=== PATIENT | female | born 1980 | race Caucasian/White ===

== ENCOUNTER → 2016-11-25 | Outpatient (CLI) | payer OTHER ==
[~2016-11-25] MED LIST: AMPH20TA2 PO; CYCL10TA6 PO; EFF50 PO; IBUP-1050 PO; MULT-506 PO; TRAM-10 PO
[2016-11-25 15:37] LABS: BASO % 0.2 %; BASO ABS # 0.01 K/uL (0-0.2); COMPLETE YES; HEMATOCRIT 37.1 % (37-47); IG% 0.2 %; LYMPH % 32.5 %; LYMPH ABS # 1.54 K/uL (1.2-3.4); MEAN CELL VOLUME 89.6 fL (80-100); MEAN CORPUSCULAR HEMOGLOBIN 30.2 pg (25-34); MEAN CORPUSCULAR HGB CONC 33.7 g/dl (32-36); MEAN PLATELET VOLUME 9.5 fL (7.4-10.4); MONO % 9.1 %; PLATELET COUNT 263 K/uL (130-400); RED BLOOD COUNT 4.14 M/uL (4.2-5.4); WHITE BLOOD COUNT 4.74 K/uL (4.8-10.8)
[2016-11-25 15:45] LABS: URINE APPEARANCE CLEAR (CLEAR); URINE BILIRUBIN NEG (NEG); URINE COLOR YELLOW; URINE NITRITE NEG (NEG); UROBILINOGEN NEG (NEG)
[2016-11-25 15:50] LABS: MANUAL MICROSCOPIC REQUIRED? NO; REVIEW REQ? NO
[2016-11-25 16:06] LABS: BENZODIAZEPINE, URINE NEG (NEG); COCAINE,URINE NEG (NEG); PHENCYCLIDINE, URINE NEG (NEG)
[2016-11-25 16:20] LABS: ALT/SGPT 31 U/L (12-78); AST/SGOT 55 U/L (15-37); BLOOD UREA NITROGEN 6 mg/dl (7-18); BUN/CREATININE RATIO 7.6 (10-20); CALCIUM 9.3 mg/dl (8.5-10.1); CARBON DIOXIDE 27 mmol/L (21-32); CHLORIDE 103 mmol/L (98-107); CREATININE 0.79 mg/dl (0.60-1.20); GLUCOSE 84 mg/dl (70-99); POTASSIUM 3.3 mmol/L (3.5-5.1); SODIUM 138 mmol/L (136-145)
[2016-11-25 16:33] LABS: ALB/GLOB RATIO 1.2 (0.9-2); ALKALINE PHOSPHATASE 96 U/L (45-117); CHOLESTEROL 210 mg/dl (0-200); CHOLESTEROL/HDL RATIO 3.5; HDL CHOLESTEROL 60 mg/dl; LDL CHOLESTEROL CALCULATED 137 mg/dl; TRIGLYCERIDES 66 mg/dl (0-150); VERY LOW DENSITY LIPOPROT CALC 13 mg/dl
== END | disposition home or self-care (01) ==
LOC: C.CPL 14:06
PROVIDERS: ATTEND Psychiatry & Neurology Psychiatry
DX: F90.9 Attention-deficit hyperactivity disorder, unspecified type (principal); Z13.220 Encounter for screening for lipoid disorders; F41.9 Anxiety disorder, unspecified

== ENCOUNTER 2017-04-13 14:19 | Emergency (ER) | payer OTHER ==
[~2017-04-13] VITALS: Ht 170.2 cm; Wt 65.3 kg
[~2017-04-13 14:19] MED LIST changes: -CYCL10TA6 PO; -TRAM-10 PO
[2017-04-13 14:20] VITALS: TEMP 36.8; Ht 170.2 cm; Wt 65.3 kg
--- NOTE | 2017-04-13 15:13 | DIAGNOSTIC IMAGING REPORT ---
LEFT SHOULDER MIN 2 VIEWS ROUTINE CLINICAL HISTORY: Left shoulder pain. COMPARISON: None FINDINGS: Alignment of the left shoulder is anatomic. There is no fracture or suspicious osseous lesion. Joint spaces are preserved. IMPRESSION: No significant abnormality of the left shoulder. Electronically signed by: Goyo Gomez M.D. 04/13/2017 3:11 PM Dictated Date/Time: 04/13/2017 3:10 PM
[2017-04-13] MEDS ORDERED: CYCL10TA6 PO (15:47)
[2017-04-13] MEDS ORDERED: TRAM-10 PO (15:47)
[2017-04-13 16:07] VITALS: BP 122/78; PULSE 88; O2SAT 99
--- NOTE | 2017-04-14 10:57 | EMERGENCY ROOM VISIT NOTE ---
ED Visit Note First contact with patient: 14:25 Chief Complaint: Left shoulder pain. History of Present Illness: Ms. Chery is a 36-year-old white female who ambulates into the ED complaining of global left shoulder pain. Patient reports approximately one week ago she was moving heavy boxes around her house to prepare for house renovations. She reports at the end of the day of moving she had some mild achiness with in her left shoulder but that has gradually increased in intensity. Currently she describes her pain as a deep achy sensation and intermittent sharp sensation. She places the majority of her discomfort in the mid trapezius area approximately 3-4 cm lateral of the C6-C7 area, in the mid rhomboid area between scapula and thoracic back and also over the bicipital groove area and the lateral aspect of the deltoid in the area of the bursa. Her pain is nonradiating. She rates her discomfort 6/10. She reports intermittently she has been using ibuprofen without relief of her discomfort. Her pain worsens with palpation in all movements of the shoulder but primarily abduction and extension of the shoulder. She has not identified any other alleviating factors related to the pain. Associated with her pain she reports she has mild paresthesias throughout the entire extremity into the hand. She denies cervical spine pain, recent direct trauma, previous significant injuries or surgeries, fevers, chills, sweats, skin eruptions, upper respiratory tract symptoms, shortness of breath, decreased appetite, nausea, extremity weakness. Review of Systems: As noted above in history of present illness. 8 body systems were reviewed and found to be negative as noted above. Past Medical History: Unspecified skin disorder, attention deficit disorder. Current Medications: Adderall, multivitamins and ibuprofen Allergies to Medications: Patient denies. Social History: Patient is currently employed; she feels safe in her home environment; she denies tobacco and alcohol use. Physical Examination: Vital Signs: Date Time Temp Pulse Resp B/P (MAP) Pulse Ox O2 Delivery O2 Flow Rate FiO2 04/13/17 16:07 88 18 122/78 99 04/13/17 14:20 36.8 100 18 119/75 100 Room Air GENERAL: 36-year-old female in mild to moderate distress due to pain, nontoxic- appearing, afebrile and hemodynamically stable. NEUROLOGICAL: Awake, alert and oriented to person, place and time. Answering questions appropriately and following commands. Normal gait. Good hand eye coordination. No focal motor or sensory deficits. SKIN: Warm, dry and pink. No soft tissue eruptions or trauma noted. HEENT: Atraumatic and normocephalic. BACK: No tenderness over the bony cervical and thoracic spine. Full range of motion of the cervical spine. Moderate tenderness through the mid trapezius area lateral to the spine and over the rhomboid muscle group just lateral to the spine. There is palpable spasm in both of these muscles. No CVA tenderness. THORAX: Lungs sounds are clear to auscultation and equal bilaterally with symmetrical chest wall. LEFT UPPER EXTREMITY: No gross bony deformity. No tenderness over the clavicle , humeral head or scapula. I do not appreciate any joint erythema, swelling or ecchymosis. Moderate tenderness as previously noted it the surrounding musculature. There is additional tenderness over the bicipital groove area as well as the subdeltoid bursa. Full range of motion in all movements of the shoulder. 4/5 muscle strength in flexion, extension, abduction, abduction, internal neck sternal rotation and horizontal flexion and extension of the shoulder against resistance. 2+ bicipital, tricipital and brachial radialis deep tendon reflexes. Throughout the extremities skin was warm and pink and capillary refill is brisk. She is able to distinguish light sensations through all dermatomes. ED Course: Patient is assessed as noted above. Left Shoulder X-Rays: Were read by myself and the radiologist showing no acute fractures or dislocations. No joint effusions. Patient's medication list was reviewed. Patient was offered pain medications and refused. Patient was educated about today's findings and instructed on her treatment plan ; she verbalizes understanding and agreement with this plan. Clinical Impression: Left shoulder pain. Trapezius and rhomboid muscle spasm. Possible bursitis. Decision-Making: Initially my differential diagnosis I considered fracture, bursitis, tendinitis, muscle strain, ligamentous sprain, cervical radiculopathy and other causes. Disposition: Patient discharged home in stable condition; prior to departure she was reassessed and subjectively reported she was feeling better. Plan: Comfort measures were discussed with the patient including alternating ibuprofen , acetaminophen and tramadol as needed for her level of pain, muscle relaxants of Flexeril, ice, proper lifting and moving, rest. Patient was encouraged to follow-up with her PCP for recheck in 3-4 days. Patient was encouraged return the ED for worsening/uncontrolled pain, arm/hand weakness, worsening numbness/tingling of the arm, fevers or any new/concerning symptoms.
== END 2017-04-13 16:09 | disposition home or self-care (01) ==
LOC: C.EDB 14:21 → C.EDD 16:09
DX: M62.830 Muscle spasm of back (principal); M25.512 Pain in left shoulder; F90.9 Attention-deficit hyperactivity disorder, unspecified type

== ENCOUNTER → 2017-06-29 | Outpatient (CLI) | payer OTHER ==
[~2017-06-29] MED LIST changes: +TRAM-10 PO
[2017-06-29 12:57] LABS: LYME DISEASE AB IGG NEG (NEG); LYME DISEASE AB IGM NEG (NEG)
[2017-06-29 14:00] LABS: ALT/SGPT 24 U/L (12-78); AST/SGOT 20 U/L (15-37); BLOOD UREA NITROGEN 5 mg/dl (7-18); BUN/CREATININE RATIO 7.9 (10-20); C-REACTIVE PROTEIN < 0.29 mg/dl (0-0.29); CALCIUM 9.2 mg/dl (8.5-10.1); CARBON DIOXIDE 30 mmol/L (21-32); CHLORIDE 105 mmol/L (98-107); CHOLESTEROL 156 mg/dl (0-200); CREATININE 0.63 mg/dl (0.60-1.20); GLUCOSE 79 mg/dl (70-99); POTASSIUM 3.7 mmol/L (3.5-5.1); SODIUM 141 mmol/L (136-145)
[2017-06-29 14:04] LABS: ALKALINE PHOSPHATASE 64 U/L (45-117); CHOLESTEROL/HDL RATIO 3.4; HDL CHOLESTEROL 46 mg/dl; LDL CHOLESTEROL CALCULATED 88 mg/dl; RHEUMATOID FACTOR < 10.0 U/mL (0-15); TRIGLYCERIDES 112 mg/dl (0-150); VERY LOW DENSITY LIPOPROT CALC 22 mg/dl
[2017-07-02 05:46] LABS: RAPID PLASMA REAGIN NONREACTIVE (NONREACT)
== END | disposition home or self-care (01) ==
LOC: C.LABBFT 07:52
PROVIDERS: ATTEND Nurse Practitioner Adult Health
DX: R74.0 Nonspecific elevation of levels of transaminase and lactic acid dehydrogenase [LDH] (principal); E87.6 Hypokalemia; Z13.220 Encounter for screening for lipoid disorders; M25.50 Pain in unspecified joint; L01.00 Impetigo, unspecified

== ENCOUNTER 2017-08-16 11:07 | Emergency (ER) | payer OTHER ==
[~2017-08-16] VITALS: Ht 170.2 cm; Wt 64.4 kg
[2017-08-16 11:12] VITALS: TEMP 36.7; Ht 170.2 cm; Wt 64.4 kg
--- NOTE | 2017-08-16 11:52 | DIAGNOSTIC IMAGING REPORT ---
LEFT SHOULDER 4 VIEWS CLINICAL HISTORY: Left shoulder pain. FINDINGS: 4 views of left shoulder are compared to study dated 04/13/2017. The skeletal structures are well mineralized. No fracture or dislocation is seen. The glenohumeral and acromioclavicular joints are preserved. The overlying soft tissues are within normal limits. The imaged left lung parenchyma appears clear. IMPRESSION: Unremarkable radiographic assessment of the left shoulder. Electronically signed by: Ari Llanos M.D. 08/16/2017 11:51 AM Dictated Date/Time: 08/16/2017 11:50 AM
[2017-08-16] MEDS ORDERED: VENL75TA4 PO (12:03)
[2017-08-16] MEDS ORDERED: AMPH30TA2 PO (12:03)
[2017-08-16] MEDS ORDERED: MULT-1018 PO (12:03)
[2017-08-16] MEDS ORDERED: PRED50TA PO ×2 (13:12→13:48)
[2017-08-16] MEDS ORDERED: CYCL10TA6 PO ×2 (13:12→13:48)
[2017-08-16] MEDS ORDERED: TRAMADOL HCL 50 MG HOME PACK PO ONE (13:15)
[2017-08-16 13:17] VITALS: BP 116/80; PULSE 90; O2SAT 100
--- NOTE | 2017-08-17 07:22 | EMERGENCY ROOM VISIT NOTE ---
History First contact with patient: 11:22 Chief Complaint: SHOULDER PAIN Stated Complaint: LEFT SHOULDER PAIN History of Present Illness The patient is a 37 year old female who presents to the Emergency Room with complaints of left shoulder pain has been ongoing off and on for the past 6 months. Patient was seen initially here in the department where x-rays were negative. She was given information to follow with her primary care physician or with orthopedics, but she states this never occurred because she was too busy with work. The patient has had a recurrence of her discomfort in that left shoulder. She is having difficulty with range of motion. She will intermittently have shooting pains down into her first, second, and third fingers. She does not recall injury or trauma. She does not have significant neck pain or chest pain. No fever or chills. No rash. She rates her discomfort a 6/10. Review of Systems More than 10 systems were reviewed and otherwise negative with the exception of history of present illness. Past Medical/Surgical History Medical Problems: (1) ANXIETY STATE NOS (2) ATTN DEFICIT W HYPERACT (3) FAM HX-DIABETES MELLITUS (4) FAMILY HISTORY OF OTHER CARDIOVASCULAR DISEASES (5) FAMILY HX-CONDITION NEC (6) FAMILY HX-MALIGNANCY NOS (7) OVARIAN CYST NEC/NOS (8) TOBACCO USE DISORDER Family History FH: heart disease Social History Smoking Status: Current Every Day Smoker Alcohol Use: occasionally Marital Status: Housing Status: lives with family Occupation Status: employed Current/Historical Medications Scheduled Amphetamine-Dextroamphetamine 30MG (Adderall 30MG), 30 MG PO BID Cyclobenzaprine Hcl (Flexeril), 10 MG PO TID Multiple Vitamins W/ Minerals (Hair Skin and Nails Formu), 1 TAB PO DAILY Multivitamin (Multivitamin), 1 TAB PO DAILY Prednisone (Prednisone), 50 MG PO DAILY Venlafaxine Hcl (Effexor), 75 MG PO DAILY Allergies Coded Allergies: No Known Allergies (Unverified , 08/16/17) Physical Exam Vital Signs Date Time Temp Pulse Resp B/P (MAP) Pulse Ox O2 Delivery O2 Flow Rate FiO2 08/16/17 13:17 90 16 116/80 100 Room Air 08/16/17 12:24 95 16 119/84 100 Room Air 08/16/17 11:12 36.7 117 18 121/82 100 Room Air Physical Exam VITALS: Vitals are noted on the nurse's note and reviewed by myself. Vital signs stable. GENERAL: Well-developed, well-nourished, white female, who is in no acute distress and resting comfortably. Patient is cooperative with the examination. NECK: Supple without nuchal rigidity. No lymphadenopathy. No thyromegaly. Cervical spine is nontender. HEART: Regular rate and rhythm without murmurs gallops or rubs. LUNGS: Clear to auscultation bilaterally without wheezes, rales or rhonchi. No retractions or accessory muscle use. MUSCULOSKELETAL: Tenderness is appreciated through the infraspinatus distribution and lateral deltoid of the left shoulder. Positive empty can. The patient has difficulty with abduction and elevation above her head with the left shoulder. No tenderness of the elbow or wrist. Neurovascularly she is intact distally. Medical Decision & Procedures ER Provider Diagnostic Interpretation: LEFT SHOULDER 4 VIEWS CLINICAL HISTORY: Left shoulder pain. FINDINGS: 4 views of left shoulder are compared to study dated 04/13/2017. The skeletal structures are well mineralized. No fracture or dislocation is seen. The glenohumeral and acromioclavicular joints are preserved. The overlying soft tissues are within normal limits. The imaged left lung parenchyma appears clear. IMPRESSION: Unremarkable radiographic assessment of the left shoulder. Medications Administered Medications (Trade) Dose Ordered Sig/Ana Route Start Time Stop Time Status Last Admin Dose Admin Tramadol HCl (Ultram Home Pack) 1 homepack UD ONCE PO 08/16/17 13:15 08/16/17 13:16 DC 08/16/17 13:17 1 HOMEPACK ED Course Physical exam and history were performed. Nursing notes, EMR, and Medication List were personally reviewed. Patient appears to have left shoulder pain for the past several months but is acutely exacerbated. X-rays were performed and do not show evidence of acute fracture or dislocation. Clinically I suspect her symptoms may be related to a rotator cuff injury or chronic inflammatory injury. The patient will be given a home pack of tramadol as well as a prescription for Flexeril and prednisone. The patient will need to follow with orthopedics for further care and management. I will give her information to help facilitate this. She was otherwise invited back to the ER with any new, worsening, or concerning symptoms. The chart was completed utilizing [employer] Software. Grammatical errors, random word insertions, pronoun errors, and incomplete sentences are an occasional consequence of this system due to software limitations, ambient noise, and hardware issues. Any formal questions or concerns about the content, text, or information contained within the body of this dictation should be directly addressed to the provider for clarification. . Medical Decision Differential diagnosis includes, but is not limited to: Sprain, strain, fracture , dislocation, subluxation, contusion, and others Impression Primary Impression: Left shoulder pain Departure Information Dispostion Home / Self-Care Condition GOOD Prescriptions Cyclobenzaprine Hcl (FLEXERIL) 10 Mg Tab 10 MG PO TID for 7 Days, #21 TAB Do not drink or drive while on this medicine Prov: Abhishek Greco PA-C 08/16/17 Prednisone (Prednisone) 50 Mg Tab 50 MG PO DAILY for 4 Days, #4 TAB Take daily in morning Prov: Abhishek Greco PA-C 08/16/17 Referrals Bolivar Murguia, D.O. Forms HOME CARE DOCUMENTATION FORM, IMPORTANT VISIT INFORMATION Patient Instructions [facility] Additional Instructions You were seen and evaluated today on an emergency basis only. This is not a substitute for, or an effort to provide, complete comprehensive medical care. It is not possible to recognize and treat all injuries or illnesses in a single emergency department visit. For this reason it is recommended that you followup with [facility] , Dr Murguia office, by telephone in the morning to arrange a follow-up visit this week. For baseline pain relief you may alternate ibuprofen and acetaminophen every 4 hours for pain control. Take 600 mg ibuprofen (Advil) and then 4 hours later take 1000 mg acetaminophen (Tylenol). Do not take more than 3000 mg acetaminophen in a single day. Flexeril 1 tablet up to 3 times a day as needed for muscle spasms. No driving, working, or alcohol use with Flexeril. Take prednisone as prescribed Take tramadol 50 mg every 8 hours as needed. Do not drink or drive on this medication. You are welcome to return to the emergency department anytime with new, worsening, or concerning symptoms.
== END 2017-08-16 13:19 | disposition home or self-care (01) ==
LOC: C.EDB 11:08 → C.EDD 13:19
DX: M25.512 Pain in left shoulder (principal); F41.9 Anxiety disorder, unspecified; F90.9 Attention-deficit hyperactivity disorder, unspecified type; Z83.3 Family history of diabetes mellitus; Z82.49 Family history of ischemic heart disease and other diseases of the circulatory system; Z80.9 Family history of malignant neoplasm, unspecified; F17.210 Nicotine dependence, cigarettes, uncomplicated; Z79.899 Other long term (current) drug therapy

== ENCOUNTER → 2018-01-11 | Outpatient (CLI) | payer OTHER ==
[~2018-01-11] MED LIST changes: -AMPH20TA2 PO; +AMPH30TA2 PO; +CYCL10TA6 PO; -EFF50 PO; -IBUP-1050 PO; +MULT-1018 PO; +PRED50TA PO; -TRAM-10 PO; +VENL75TA4 PO
--- NOTE | 2018-01-11 13:51 | DIAGNOSTIC IMAGING REPORT ---
SINUS CT CT DOSE: 484.13 mGy.cm HISTORY: J32.9 Chronic [id number] Right sided facial [id number] TECHNIQUE: Multiaxial CT images of the paranasal sinuses were performed and reformatted in the coronal plane without the use of contrast. A dose lowering technique was utilized adhering to the principles of ALARA. COMPARISON: Temporal bone CT 09/18/2008. FINDINGS: The frontal sinuses, sphenoid sinuses, left ethmoid air cells, and maxillary sinuses are clear. Mild mucosal thickening within the right ethmoid air cells. No fluid levels within the paranasal sinuses. Minimal left nasal septal deviation. The mastoid air cells are clear. The bilateral ostiomeatal units are patent. Visualized brain parenchyma is unremarkable. The orbits are unremarkable. IMPRESSION: Mild sinus disease within the right ethmoid air cells. The remaining paranasal sinuses and mastoid air cells are clear. Electronically signed by: Jesse Conklin M.D. 01/11/2018 1:50 PM Dictated Date/Time: 01/11/2018 1:40 PM
== END | disposition home or self-care (01) ==
LOC: C.CTS 13:23
PROVIDERS: ATTEND Internal Medicine
DX: J32.9 Chronic sinusitis, unspecified (principal); R51 Headache